=== PATIENT | female | born 1990 | race Caucasian/White ===

== ENCOUNTER 2019-07-06 07:30 | Outpatient (CLI) | payer BC ==
--- NOTE | 2019-07-06 10:49 | MRI ---
MRI LUMBAR SPINE WITHOUT CONTRAST: INDICATIONS: Low back pain. COMPARISON: 09/27/2014 FINDINGS: Vertebral body heights and disk space heights are preserved, as is spinal alignment. There is no acu te marrow edema. The conus medullaris is normal in morphology and terminates at the L1 level. There is no acute abnormality at the imaged retroperitoneum. L5-S1: There is a slight disk bulge without significant central canal or high-grade neural foraminal stenosis. L4-L5: Minimal facet hypertrophy is present and there is mild disk bulge with slight effacement of t he ventral thecal sac. No high grade neural foraminal stenosis. L3-L4: Slight disk bulge without significant central canal or neural foraminal stenosis. L2-L3: No high grade central canal or neural foraminal stenosis. L1-L2: No high grade central canal or neural foraminal stenosis. There is a borderline congenital AP diameter narrowing of the vertebral canal of the mid to lower lum bar spine, likely on the basis of slightly shortened pedicles. IMPRESSION: 1. No significant interval disk degenerative disease. 2. There are mild multilevel disk bulges, superimposed upon borderline anterior-posterior diameter o f the vertebral canal, on a congenital basis. POS: [facility]
== END 2019-07-06 07:31 | disposition home or self-care (01) ==
LOC: TBSIIMAG 07:30
PROVIDERS: ATTEND Neurological Surgery
DX: M54.5 Low back pain (principal); M51.9 Unspecified thoracic, thoracolumbar and lumbosacral intervertebral disc disorder
CPT/HCPCS: 72148

== ENCOUNTER 2019-09-03 13:05 | Outpatient (CLI) | payer BC ==
--- NOTE | 2019-09-03 13:38 | RAD ---
CERVICAL SPINE 3 VIEWS: HISTORY: Neck pain x10 months. Worsening pain with radiation down the left shoulder. COMPARISON: None. FINDINGS: Lateral neutral, lateral flexion and lateral extension views of the cervical spine demonstrate a norm al prevertebral soft tissue. Predental space is normal. Straightening of normal cervical lordosis may be positional. No significant spondylolisthesis in the neutral position. No abnormal motion upon extension or flexion. IMPRESSION: Unremarkable cervical spine radiograph series. No significant or abnormal motion upon flexion or exte nsion. Transcribed Date/Time: 09/03/2019 1:45 PM
--- NOTE | 2019-09-03 15:13 | CT ---
CT LUMBAR SPINE WITHOUT CONTRAST: INDICATIONS: Chronic low back pain COMPARISON: MR lumbar spine without contrast dated July 06, 2019 TECHNIQUE: Multiple CT images were obtained of the lumbar spine without contrast. Axial, coronal, and sagittal r eformatted images were constructed from the raw data. FINDINGS: Visualized retroperitoneal and paravertebral soft tissues: Within normal limits Spinal alignment: Within normal limits. Spinal instrumentation or postsurgical change: None At L5-S1, mild broad-based bulge without appreciable central canal or neural foraminal narrowing. At L4-5, mild broad-based bulge without appreciable central canal or neural foraminal narrowing At L3-4, mild broad-based bulge without appreciable central canal or neural foraminal narrowing. At L2-3, mild broad-based bulge without appreciable central canal or neural foraminal narrowing. At L1-L2, there is no appreciable central canal or neuroforaminal narrowing. At T12-L1, there is no appreciable central canal or neuroforaminal narrowing. IMPRESSION: 1. Mild disc degenerative disease.
== END 2019-09-03 13:06 | disposition home or self-care (01) ==
LOC: SCSCT 13:05
PROVIDERS: ATTEND Neurological Surgery
DX: M51.16 Intervertebral disc disorders with radiculopathy, lumbar region (principal); M54.2 Cervicalgia
CPT/HCPCS: 72040; 72131